=== PATIENT | female | born 1985 | race Caucasian/White ===

== ENCOUNTER 2018-05-06 21:57 | Emergency (ER) | payer OTHER ==
[~2018-05-06] VITALS: Ht 154.9 cm; Wt 81.6 kg
[2018-05-06 21:58] VITALS: Ht 154.9 cm; Wt 81.6 kg
[2018-05-06 22:30] LABS: BASOPHIL % 0.6 % (0-2); PLATELET COUNT 229 x10^3mcL (130-400); RED CELL DISTRIBUTION WIDTH 13.4 % (11.5-14.5)
[2018-05-06 23:02] LABS: microscopic required? YES; urine erythrocyte 3+ (NEGATIVE)
[2018-05-06 23:48] VITALS: BP 114/69
== END 2018-05-06 23:48 | disposition home or self-care (01) ==
LOC: ED 21:57
PROVIDERS: Emergency Medicine
DX: O20.0 Threatened abortion (principal); Z98.890 Other specified postprocedural states; Z91.018 Allergy to other foods
CPT/HCPCS: J2405; J7030